=== PATIENT | female | born 1940 | race Caucasian/White ===

== ENCOUNTER 2019-03-06 20:17 | Inpatient (IN) ==
[2019-03-06] MEDS ORDERED: ONDANSETRON 4 MG ODT TABLET SL ONE (21:26)
[2019-03-06] MEDS ORDERED: ONDANSETRON 4 MG/2 ML VIAL IV ONE (21:29)
[2019-03-06 21:51] LABS: Basophils # (Auto) 0 K/mcL (0.0-0.3); Basophils % (Auto) 0.2 % (0.0-2.0); Eosinophils # (Auto) 0.2 K/mcL (0.0-0.7); Eosinophils % (Auto) 2.1 % (0.0-7.0); Granulocytes % (Auto) 72.3 % (38.0-78.0); Hematocrit 41.4 % (36.0-48.0); Hemoglobin 13.4 g/dL (12.0-15.0); Lymphocytes # (Auto) 2.1 K/mcL (1.5-4.8); Lymphocytes % (Auto) 20.9 % (15.5-49.0); Mean Cell Volume 90.6 fL (80.0-100.0); Mean Corpuscular HGB Conc 32.5 g/dL (31.0-36.0); Mean Platelet Volume 9.6 fL (7.4-10.4); Monocytes # (Auto) 0.5 K/mcL (0.1-0.9); Monocytes % (Auto) 4.5 % (1.0-12.0); Platelet Count 244 K/mcL (140-440); RBC 4.57 M/mcL (4.00-5.20); WBC 10.2 K/mcL (4.5-11.0)
--- NOTE | 2019-03-06 22:07 | Emergency Department Note ---
Nausea/Vomiting/Diarrhea HPI - General Chief complaint: Nausea/Vomiting/Diarrhea Stated complaint: vomitng and abd. cramping Time Seen by Provider: 03/06/19 20:59 Source: patient Mode of arrival: EMS Limitations: no limitations - History of Present Illness complaint: nausea, vomiting Onset (ago): day(s) (3-4) Description of Vomiting: food contents, watery Severity: moderate Severity scale (1-10): 6 Quality: cramping, aching Consistency: constant Improves with: none Worsens with: none Associated symptoms: Reports: chest pain, nausea/vomiting, weakness. Denies: myalgias, cough, diaphoresis, fever/chills, headaches, loss of appetite, malaise, rash, dysuria, shortness of breath, syncope - Related Data Home Medications Medication Instructions Recorded Confirmed fish oil 1000mg w/300mg [place] 3 See Rx Instructions PO HS 03/01/17 02/22/19 levalbuterol HFA 45 mcg/actuation 90 mcg INHALATION .COMPLEX PRN g 05/26/17 02/22/19 aerosol inhaler vitamin c w/angus hips 05/26/17 02/22/19 magnesium oxide 400 mg (241.3 mg 400 mg PO QDAY tab 09/26/18 02/22/19 magnesium) tablet metoprolol tartrate 50 mg tablet 100 mg PO BID tab 09/26/18 02/22/19 levalbuterol 1.25 mg/3 mL solution 1.25 mg INHALATION Q1-4H PRN ml 11/10/18 02/22/19 for nebulization cetirizine 10 mg capsule PO cap 11/14/18 02/22/19 clopidogrel 75 mg tablet 75 mg PO QDAY 11/24/18 02/22/19 doxazosin 1 mg tablet 1 mg PO QDAY 02/22/19 02/22/19 ezetimibe 10 mg tablet 10 mg PO QDAY 02/22/19 02/22/19 furosemide 20 mg tablet 20 mg PO QDAY 02/22/19 02/22/19 lisinopril 40 mg tablet 40 mg PO QDAY 02/22/19 02/22/19 nodwxbso-ynbvbrcup-dosnmnmz 3.5 2 drp OPHTHALMIC Q12H ml 02/22/19 02/22/19 mg/mL-10,000 unit/mL-0.1% eye drops Previous Rx's Medication Instructions Recorded lancets See Dose Instructions .ROUTE 05/27/17 .MEDSUPPLY #200 each Home nebulizer #1 ea 09/13/17 cholecalciferol (vitamin D3) 2,000 2,000 unit PO QDAY #90 cap 11/04/17 unit capsule pen needle, diabetic 31 gauge x See Dose Instructions .ROUTE 01/18/18 5/16" .MEDSUPPLY #100 each spironolactone 25 mg tablet 50 mg PO QDAY #180 tab 01/21/18 Accu-Chek SmartView Test Strips See Dose Instructions .ROUTE 04/01/18 .MEDSUPPLY #350 each NS lisinopril 40 mg tablet 40 mg PO QDAY #90 tab 06/02/18 budesonide 0.5 mg/2 mL suspension 0.5 mg INHALATION Q12H #120 ml 06/23/18 for nebulization fenofibrate 160 mg tablet 160 mg PO QDAY #90 tab 10/24/18 clonidine HCl 0.2 mg tablet 0.2 mg PO BID #60 tab 12/06/18 insulin glargine (U-300) conc. 300 28 unit SUB-Q QDAY #8.1 ml 12/06/18 unit/mL (1.5 mL) subcutaneous pen oxybutynin chloride ER 5 mg 5 mg PO QDAY #90 tab 01/04/19 tablet,extended release 24 hr alprazolam 0.5 mg tablet 0.5 mg PO QDAY PRN #30 tab 02/24/19 insulin lispro (U- 100) 100 60 unit SUB-Q .COMPLEX #60 ml 02/24/19 unit/mL subcutaneous pen Allergies Allergy/AdvReac Type Severity Reaction Status Date / Time albuterol [ALBUTEROL] Allergy Severe Throat Verified 02/22/19 12:55 Closes iodine [IODINE] Allergy Severe Anaphylaxis Verified 02/22/19 12:55 tolterodine [TOLTERODINE] Allergy Severe HIGH BLOOD Verified 02/22/19 12:55 SUGARS betamethasone Allergy Intermediate Itching Verified 02/22/19 12:55 [From CELESTONE] ciprofloxacin [From Cipro] Allergy Intermediate Dizziness Verified 02/22/19 12:55 Formoterol [From Symbicort] Allergy Intermediate Shock Verified 02/22/19 12:55 insulin glulisine Allergy Intermediate Severe Verified 02/22/19 12:55 [From Apidra U-100 Insulin] rash to face, neck, ears and thighs fluorometholone Allergy Unknown HIGH BLOOD Verified 02/22/19 12:55 [FLUOROMETHOLONE] SUGAR Jynmovn-Vzc-Pez Reductase Allergy Unknown joint Verified 02/22/19 12:55 Inhibitor muscle pain amlodipine AdvReac Intermediate Muscle Pain Verified 02/22/19 12:55 Barbiturates AdvReac Intermediate Hallucinati Verified 02/22/19 12:55 ng hydrochlorothiazide AdvReac Intermediate Joint Pain Verified 02/22/19 12:55 simvastatin [SIMVASTATIN] AdvReac Intermediate ALL STATIN Verified 02/22/19 12:55 MEDS - SEVERE JOINT PAIN aspirin AdvReac Mild HEMORRHAGE Verified 02/22/19 12:55 hydrocodone [HYDROCODONE] AdvReac Mild Hallucinati Verified 02/22/19 12:55 ons Penicillins AdvReac Mild Nausea/Vomi Verified 02/22/19 12:55 ting lorazepam AdvReac Unknown Drowsy Verified 02/22/19 12:55 From SHELLFISH* Allergy Severe Anaphylaxis Uncoded 02/22/19 12:55 From SECONAL Allergy Unknown hallucinaio Uncoded 02/22/19 12:55 ns metformin AdvReac Severe renal Uncoded 02/22/19 12:55 impairment From PERCOCET AdvReac Intermediate HALLUCINATI Uncoded 02/22/19 12:55 ONS Review of Systems All systems ED: reviewed and negative except as stated. Past Medical History - Past Medical History [facility] Narrative: Family History (Last Reviewed 12/05/18 @ 09:47 by Andrea Springer PA-C) no family member listed Depression Cardiac disease Essential hypertension Medical History (Last Reviewed 12/05/18 @ 09:47 by Andrea Springer PA-C) Secondary hyperparathyroidism of renal origin (Chronic) Vitamin D deficiency (Chronic) Hypertension in stage 3 chronic kidney disease due to type 2 diabetes mellitus (Chronic) CKD (chronic kidney disease) stage 3, GFR 30-59 ml/min (Chronic) Seasonal and perennial allergic rhinitis (Chronic) Vertigo (Chronic) Perennial allergic rhinitis (Chronic) Fatigue (Chronic) Traumatic brain injury (Chronic ~04/1996) Carpal tunnel syndrome (Chronic) Arthritis (Chronic) Anxiety (Chronic) Diabetes mellitus (Chronic) Osteopenia (Chronic) Migraine (Chronic) Hypertensive heart disease without heart failure (Chronic) Hypertension, essential (Chronic) Hyperlipemia (Chronic) Diabetes mellitus, type II (Chronic) 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) Coronary artery disease (Chronic) Common migraine (Chronic) Asthma (Chronic) Degeneration, intervertebral disc (Resolved) Depressive disorder (Resolved) Head injury (Resolved) Hip pain, left (Resolved) History of hysterectomy (Resolved ~1981) History of renal angiogram (Resolved 02/26/00) Lung nodule (Resolved) Orthopnea (Resolved) Painful urination (Resolved) Radial styloid tenosynovitis (Resolved) Right upper quadrant pain (Resolved) Sinus headache (Resolved) Sinusitis (Resolved) Tenosynovitis of finger, hand, or wrist (Resolved) Thoracic or lumbosacral neuritis or radiculitis (Resolved) Transient ischemic attack (TIA) (Resolved) Vertigo (Resolved) All Active Problems (Last Reviewed 12/05/18 @ 09:47 by Andrea Springer PA-C) Dehydration (Acute) Neurological deficit present (Acute) Cognitive changes (Acute) History of hypertension (Acute) Side effect of medication (Acute) Conjunctivitis (Acute) Cellulitis of right anterior lower leg (Acute) Visual changes (Acute) Dysmetria (Acute) Secondary hyperparathyroidism of renal origin (Chronic) Vitamin D deficiency (Chronic) Hypertension in stage 3 chronic kidney disease due to type 2 diabetes mellitus (Chronic) CKD (chronic kidney disease) stage 3, GFR 30-59 ml/min (Chronic) Adenocarcinoma, lung (Chronic) Urinary incontinence (Chronic) Seasonal and perennial allergic rhinitis (Chronic) Vertigo (Chronic) Patellofemoral arthralgia of right knee (Chronic) Perennial allergic rhinitis (Chronic) Fatigue (Chronic) Traumatic brain injury (Chronic ~04/1996) Carpal tunnel syndrome (Chronic) Arthritis (Chronic) Anxiety (Chronic) Diabetes mellitus (Chronic) Osteopenia (Chronic) Migraine (Chronic) Hypertensive heart disease without heart failure (Chronic) Hypertension, essential (Chronic) Hyperlipemia (Chronic) Diabetes mellitus, type II (Chronic) 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) Coronary artery disease (Chronic) Common migraine (Chronic) Asthma (Chronic) Past Surgical History (Last Reviewed 12/05/18 @ 09:47 by Andrea Springer PA-C) History of colonoscopy (Chronic 06/05/13) History of lung biopsy (Chronic ~04/2011) History of YAG laser capsulotomy of lens of left eye (Resolved 10/11/13) History of YAG laser capsulotomy of lens of right eye (Resolved 02/11/09) History of carpal tunnel release (Resolved) History of carpal tunnel release (Resolved 05/17/06) History of cataract extraction (Resolved) History of cholecystectomy (Resolved) History of cholecystectomy (Resolved ~1981) History of foot surgery (Resolved ~1960) History of kidney surgery (Resolved) History of lumbar surgery (Resolved) History of spinal surgery (Resolved ~1981) History of surgery (Resolved 06/01/17) History of thumb surgery (Resolved ~2005) History of tonsillectomy (Resolved ~1947) Hx of Achilles tendon repair (Resolved) Hx of blepharoplasty (Resolved) Hx of cardiac catheterization (Resolved) Hx of colonoscopy (Resolved) Hx of foot surgery (Resolved) Hx of repair of left rotator cuff (Resolved ~09/1998) Hx of repair of right rotator cuff (Resolved 11/15/01) Hx of repair of rotator cuff (Resolved) Lung cancer (Resolved) Status post blepharoplasty of both eyes (Resolved 10/24/14) Medical history: Reports: arthritis, asthma, cancer (Non-small cell lung), CAD (coronary artery disease), DM (Type II, insulin using. Complications include kidney issues and hyperglycemia.), hyperlipidemia, hypertension, myocardial infarction, renal disease, TIA (3 episodes), other (PAT. Dry eyes. Traumatic brain injury.). Denies: CVA Psychiatric history: Reports: depression (Past, not current.). Denies: anxiety Surgical history ED: Reports: cancer surgery (Right lung lobectomy.), cataract, cholecystectomy, orthopedic, other (Carpal tunnel bilat. Shoulders. Bilat thumb release. Left middle finger geoff release. C6-C7 anterior disc excision. Toe bones removed.), CHANDANA/BSO, tonsillectomy, other (blepharoplasty bilat. ) - Social History smoking status: Never smoker Alcohol use: Reports: Rarely Drug use: Reports: none. Denies: marijuana Physical Exam Limitations: no limitations General appearance: alert, in no apparent distress Head: atraumatic, normocephalic Eye: Present: normal appearance, PERRL, EOMI. Absent: scleral icterus, conjunctival injection ENT: normal oropharynx, mucous membranes moist Neck: Present: trachea midline. Absent: lymphadenopathy, thyromegaly Chest: Present: symmetric chest wall rise Respiratory: Present: normal lung sounds bilaterally. Absent: respiratory distress, wheezes, stridor, accessory muscle use, prolonged expiratory phase Cardiovascular: Present: regular rate, normal rhythm. Absent: systolic murmur, diastolic murmur Abdominal: Present: soft, tenderness. Absent: distention, guarding, rebound, rigidity, organomegaly, mass Abdominal tenderness: Present: RLQ, mild Extremities: Absent: pedal edema, pretibial edema, calf tenderness Back: Absent: CVA tenderness (R), CVA tenderness (L), spinous process tenderness Neurological: Present: alert, oriented X3 Psychiatric: Present: normal affect, normal mood Skin: Present: warm, dry Course Vital Signs Temperature 97.0 F 03/06/19 20:18 Pulse Rate 45 L 03/06/19 20:18 Respiratory Rate 16 03/06/19 20:18 Blood Pressure 140/86 03/06/19 20:18 Pulse Oximetry (%) 98 03/06/19 20:18 Temperature 97.0 F 03/06/19 20:18 Pulse Rate 55 L 03/07/19 00:46 Respiratory Rate 25 H 03/07/19 00:01 Blood Pressure 162/52 03/07/19 00:46 Pulse Oximetry (%) 91 03/07/19 00:46 Nausea/Vomiting/Diarrhea - [facility] Narrative Medical decision making narrative: 78-year-old female presenting to the emergency department chief complaint of nausea vomiting diarrhea, patient did have some abdominal pain but not dramatic. Patient without significant fever CBC was normal patient however was persistently vomiting scan reveals appendix at 1.[address] case [address] Mckeon and the consensus medical pain is to admit the patient provide with Zosyn and antiemetics and pain medication. Surgical evaluation in the morning. - Differential Diagnosis Likely: food poisoning, gastroenteritis, drug-induced nausea and vomitting, dehydration. Unlikely: traveler's diarrhea, clostridium difficile infection - Lab Data Result diagrams: 03/06/19 21:13 03/06/19 22:07 Lab Results 03/06/19 03/06/19 03/06/19 Range/Units 21:13 21:13 22:07 WBC 10.2 (4.5-11.0) K/mcL RBC 4.57 (4.00-5.20) M/mcL Hgb 13.4 (12.0-15.0) g/dL Hct 41.4 (36.0-48.0) % MCV 90.6 (80.0-100.0) fL MCH 29.4 (26.0-34.0) pg MCHC 32.5 (31.0-36.0) g/dL RDW 14.0 (11.5-14.5) % Plt Count 244 (140-440) K/mcL MPV 9.6 (7.4-10.4) fL Gran % 72.3 (38.0-78.0) % Lymph % (Auto) 20.9 (15.5-49.0) % Alfalfa % (Auto) 4.5 (1.0-12.0) % Eos % (Auto) 2.1 (0.0-7.0) % Baso % (Auto) 0.2 (0.0-2.0) % Gran # 7.4 (1.8-8.0) K/mcL Lymph # (Auto) 2.1 (1.5-4.8) K/mcL Alfalfa # (Auto) 0.5 (0.1-0.9) K/mcL Eos # (Auto) 0.2 (0.0-0.7) K/mcL Baso # (Auto) 0 (0.0-0.3) K/mcL Sodium Not Reportable 138 Potassium Not Reportable 4.0 Chloride Not Reportable 101 Carbon Dioxide Not Reportable 24 Anion Gap Not Reportable 13.0 BUN Not Reportable 28 H Creatinine Not Reportable 1.3 H GFR Calculation Not Reportable 40 Glucose TNP 153 H Calcium Not Reportable 9.2 Total Bilirubin Not Reportable 0.3 AST Not Reportable 50 H ALT Not Reportable 40 Alkaline Phosphatase Not Reportable 30 L Total Protein Not Reportable 6.6 Albumin Not Reportable 3.7 Globulin Not Reportable 2.9 Albumin/Globulin Ratio Not Reportable 1.3 Disposition Pt seen by PRINCIPAL PROCESS ENGINEER/PA only: No Clinical Impression: Appendicitis Qualifiers: Appendicitis type: acute appendicitis Acute appendicitis type: unspecified acute appendicitis type Qualified Code(s): K35.80 - Unspecified acute appendicitis Disposition: Xfer As Outpt/Obs ([facility]) Condition: Fair Instructions: Appendicitis (GEN) Referrals: Seeber,Xavier, MD [Primary Care Provider] -
[2019-03-06] MEDS ORDERED: PROMETHAZINE 25 MG/ML VIAL IV ONE (22:26)
[2019-03-06 23:13] LABS: ALT/SGPT 40 U/l (0-40); AST/SGOT 50 U/l (0-37); Albumin 3.7 gm/dL (3.2-5.2); Albumin/Globulin Ratio 1.3 (1.0-2.3); Alkaline Phosphatase 30 U/L (39-117); Bilirubin,Total 0.3 mg/dL (0.0-1.0); Blood Urea Nitrogen 28 mg/dl (8-23); Calcium 9.2 mg/dl (8.6-10.4); Carbon Dioxide 24 mmol/L (22-30); Chloride 101 mmol/L (96-108); Globulin 2.9 gm/dL (2.2-3.7); Glomerular Filtration Rate 40; Glucose 153 mg/dL (70-105)
[2019-03-07] MEDS ORDERED: PIPERACILLIN SODIUM/TAZOBACTAM 3.375 GM in DEXTROSE 5% IN WATER 50 ML IV ONE (00:43)
[2019-03-07] MEDS ORDERED: PROMETHAZINE 25 MG/ML VIAL IV PRN ×3 (00:47→21:35)
[2019-03-07] MEDS: PIPERACILLIN SODIUM/TAZOBACTAM 3.375 GM in DEXTROSE 5% IN WATER 50 ML IV SCH ×4 (01:07→11:15)
[2019-03-07 01:29] LABS: Appearance,Urine CLEAR; Bacteria,Urine 0 /hpf (0); Bilirubin,Urine NEG (NEG); Color,Urine YELLOW; Culture Indicated,Urine NO; Glucose,Urine (UA) NEGATIVE (NEG); Ketones,Urine 5/TR mg/dL (NEG); Leukocyte Esterase,Urine 25 /uL (NEG); Mucus,Urine FEW /hpf (0); Nitrate,Urine NEG (NEG); Protein,Urine NEG (NEG); Urine Blood NEG mg/dL (<0.03); Urine RBC < 1 /hpf (0-1); Urine Squamous Epithelial Cell 0 /hpf (0-4); Urine Transitional Epi Cells < 1 /hpf (0-2); Urine WBC 1 /hpf (0-4); Urobilinogen,Urine NEG (NEG)
[2019-03-07] MEDS: 0.9 % SODIUM CHLORIDE 1,000 ML IV SCH ×3 (01:34→23:20)
[2019-03-07] MEDS: HYDROmorphone 2 MG/ML VIAL IV PRN ×2 (04:24→08:53)
--- NOTE | 2019-03-07 05:44 | Cat Scan Report ---
CLINICAL INFORMATION: Nausea, vomiting and abdominal pain COMPARISON: Abdomen and pelvic CT . TECHNIQUE: 0.625 mm helical slices were obtained from the mid heart through the subtrochanteric regions. Following reconstruction, 2.5 mm sagittal, coronal and axial reformatted images were processed and reviewed at bone and soft tissue windows.The exam was performed using radiation dose optimization techniques including, but not limited to, automated exposure control, adjustment of the mA and/or kV according to patient size and use of iterative reconstruction technique. FINDINGS: Scattered scarring in the inferior right middle and lower lobes appreciated. No nodules or infiltrates. No effusions. The visualized heart is mildly enlarged and there is heavy plaque in the coronary arteries - particularly the LAD. Abdominal images show the noncontrasted liver is normal in size and configuration. A 13 mm cyst in the left hepatic lobe is stable since the 2011 CT. The gallbladder is surgically absent. Intrahepatic and common bile ducts are normal caliber: CBD is 5 mm. Both noncontrasted kidneys, adrenal glands, spleen, pancreas, and aorta are normal in size, configuration and attenuation without focal lesion. There is no free air, free fluid or adenopathy. Pelvic images show hysterectomy/oophorectomy changes. Urinary bladder is unremarkable. The appendix is located in the inferior pericecal region and is dilated (diameter 12 mm) with wall thickening and periappendiceal inflammation. Moreover, there are three appendicoliths ranging up to a 10 mm stone near the cecal junction. Findings are compatible simple appendicitis. The colon, small bowel and stomach are on otherwise, normal. Bone windows show degenerative changes in the lumbar spine with moderate L3-4 and mild L4-5 central canal and IV foraminal narrowing related disc protrusion and facet arthropathy. There is impingement of the L3, L4-L5 nerve roots. IMPRESSION: 1. Simple appendicitis. Appendix is located in the inferior pericecal region. 2. Heavy calcific plaque in the coronary arteries - particularly the LAD 3. 13 mm cyst in the left hepatic lobe - stable. Note: Lack of intravenous contrast and water as enteric contrast significantly decreases sensitivity in detecting pathology both in solid abdominal organs and enteric structures Interpreted and Authenticated by: Karsten Eng 03/07/19
[2019-03-07] MEDS: 0.9 % SODIUM CHLORIDE 10 ML SYRINGE IV SCH ×3 (06:35→23:20)
--- NOTE | 2019-03-07 09:00 | XRay Report ---
CLINICAL INFORMATION: preop evaluation COMPARISON: 06/15/2018 FINDINGS: The heart size, mediastinum and pulmonary vessels are unremarkable. The lungs are clear. There are no effusions. The bones and soft tissues are within normal limits. IMPRESSION: Normal chest. Interpreted and Authenticated by: Karsten Eng 03/07/19
[2019-03-07 09:42] LABS: INR 1.1 (0.9-1.1); Prothrombin Time 14.6 sec (11.9-14.5)
--- NOTE | 2019-03-07 10:58 | General Surg History&Physical ---
History of Present Illness Patient information: Note initiated : 03/07/19 at 10:56 am Service Date, if different from initiated Date: [] Patient: Modesta Butterfield a 78 y/o F admitted on 03/07/19 for vomitng and abd. cramping. Chief Complaint: [] HPI: Ms. Butterfield is a 78 year old F gives a history of onset of crampy lower abdominal pain yesterday evening. This was followed by multiple episodes of nausea with vomiting. She had at least 8 episodes of emesis. She had diffuse pain across her lower abdomen initially and later settled in the right lower quadrant. She did have multiple stools but they were not watery. She has not had similar discomfort in the past. She was seen in the emergency room with finding of tender lower abdomen, normal active bowel sounds. CT of the abdomen shows a 12 mm appendix with thickened appendiceal wall and periappendiceal edema with 3 appendicoliths. Patient is admitted with acute appendicitis. She is counseled for laparoscopic appendectomy. Review of Systems All systems PM: reviewed and no additional remarkable complaints except as stated (except as noted below) - Constitutional fatigue, malaise, weakness - Cardiovascular no chest pain with activity, no palpatations, no rapid heart rate - Respiratory no cough, no dyspnea, no wheezing - Gastrointestinal abdominal pain, change in bowel habits, cramping, nausea, tenesmus - Genitourinary Genitourinary: dysuria, nocturia, urinary incontinence, urinary urgency - Musculoskeletal arthralgias, joint swelling, myalgias, stiffness - Integumentary no non-healing lesions, no pruritus, no rash - Neurological headache(s), no dizziness, no tremor(s) - Psychiatric anxiety, depression - Hematologic/Lymphatic no easy bleeding, no easy bruising, no lymphadenopathy - Allergic/Immunologic no tongue swelling, no throat swelling, no uticaria, no wheezing, no lip swelling Past History Past medical history: Chronic asthma which is stable Congestive heart failure, clinically stable Hypertension CKD-3 Traumatic brain injury 1995 Diabetes mellitus uncontrolled Coronary artery disease stable Anxiety with depression History of lung cancer status post resection 2017 Degenerative disc disease stable Past surgical history: Abdominal hysterectomy Bilateral carpal tunnel release. Cholecystectomy C6-7 disc surgery Right lower lobectomy 2017 Achilles tendon repair Bilateral rotator cuff repair Past family history: Depression Cardiac disease Hypertension Past social history: Never smoker Never drinker Denies drug use Medications and Allergies Home Medications Medication Instructions Recorded Confirmed Type fish oil 1000mg w/300mg [place] 3 2 tab PO HS 03/01/17 03/07/19 History levalbuterol HFA 45 mcg/actuation 90 mcg INHALATION .COMPLEX PRN g 05/26/17 03/07/19 History aerosol inhaler vitamin c w/angus hips 1,000 mg PO QNOON 05/26/17 03/07/19 History lancets See Dose Instructions .ROUTE 05/27/17 02/22/19 Rx .MEDSUPPLY #200 each Home nebulizer #1 ea 09/13/17 02/22/19 Rx pen needle, diabetic 31 gauge x See Dose Instructions .ROUTE 01/18/18 02/22/19 Rx 5/16" .MEDSUPPLY #100 each spironolactone 25 mg tablet 50 mg PO QDAY #180 tab 01/21/18 03/07/19 Rx Accu-Chek SmartView Test Strips See Dose Instructions .ROUTE 04/01/18 02/22/19 Rx .MEDSUPPLY #350 each NS budesonide 0.5 mg/2 mL suspension 0.5 mg INHALATION Q12H #120 ml 06/23/18 03/07/19 Rx for nebulization magnesium oxide 400 mg (241.3 mg 400 mg PO QNOON tab 09/26/18 03/07/19 History magnesium) tablet metoprolol tartrate 50 mg tablet 100 mg PO BID tab 09/26/18 03/07/19 History fenofibrate 160 mg tablet 160 mg PO QDAY #90 tab 10/24/18 03/07/19 Rx levalbuterol 1.25 mg/3 mL solution 1.25 mg INHALATION Q1-4H PRN ml 11/10/18 03/07/19 History for nebulization cetirizine 10 mg capsule 10 mg PO DAILY cap 11/14/18 03/07/19 History clopidogrel 75 mg tablet 75 mg PO QDAY 11/24/18 03/07/19 History insulin glargine (U-300) conc. 300 28 unit SUB-Q QDAY #8.1 ml 12/06/18 03/07/19 Rx unit/mL (1.5 mL) subcutaneous pen oxybutynin chloride ER 5 mg 5 mg PO QDAY #90 tab 01/04/19 03/07/19 Rx tablet,extended release 24 hr doxazosin 1 mg tablet 1 mg PO HS 02/22/19 03/07/19 History ezetimibe 10 mg tablet 10 mg PO QDAY 02/22/19 03/07/19 History furosemide 20 mg tablet 20 mg PO QDAY 02/22/19 03/07/19 History xcjgzcmq-zubygqmka-yguwjnvg 3.5 2 drp OPHTHALMIC Q12H ml 02/22/19 03/07/19 History mg/mL-10,000 unit/mL-0.1% eye drops ALPRAZolam [Xanax] 0.5 mg PO QHS PRN 03/07/19 03/07/19 History Cholecalciferol (Vitamin D3) 2,000 unit PO QNOON 03/07/19 03/07/19 History [Vitamin D3] Insulin Lispro [Humalog KwikPen 60 unit SUBCUT .COMPLEX 03/07/19 03/07/19 History Insulin] Lisinopril [Zestril] 40 mg PO QNOON 03/07/19 03/07/19 History cloNIDine HCL [Catapres] 0.1 mg PO BID 03/07/19 03/07/19 History Allergies Allergy/AdvReac Type Severity Reaction Status Date / Time albuterol [ALBUTEROL] Allergy Severe Throat Verified 02/22/19 12:55 Closes iodine [IODINE] Allergy Severe Anaphylaxis Verified 02/22/19 12:55 cat dander Allergy Intermediate Difficulty Verified 03/07/19 02:57 Breathing dog dander Allergy Intermediate Difficulty Verified 03/07/19 02:57 Breathing Formoterol [From Symbicort] Allergy Intermediate Shock Verified 02/22/19 12:55 insulin glulisine Allergy Intermediate Severe Verified 02/22/19 12:55 [From Apidra U-100 Insulin] rash to face, neck, ears and thighs betamethasone Allergy Mild Itching Verified 03/07/19 07:41 [From CELESTONE] amlodipine AdvReac Intermediate Muscle Pain Verified 02/22/19 12:55 Barbiturates AdvReac Intermediate Hallucinati Verified 02/22/19 12:55 ng hydrochlorothiazide AdvReac Intermediate Joint Pain Verified 02/22/19 12:55 [id number]-Sdc-Vpw Reductase AdvReac Intermediate joint Verified 03/07/19 07:41 Inhibitor muscle pain aspirin AdvReac Mild HEMORRHAGE Verified 02/22/19 12:55 ciprofloxacin [From Cipro] AdvReac Mild Dizziness Verified 03/07/19 07:41 clarithromycin AdvReac Mild Dizziness Verified 03/07/19 07:41 fluorometholone AdvReac Mild HIGH BLOOD Verified 03/07/19 07:41 [FLUOROMETHOLONE] SUGAR hydrocodone [HYDROCODONE] AdvReac Mild Hallucinati Verified 02/22/19 12:55 ons lorazepam AdvReac Mild Drowsy Verified 03/07/19 07:41 Penicillins AdvReac Mild Nausea/Vomi Verified 02/22/19 12:55 ting tolterodine [TOLTERODINE] AdvReac Mild HIGH BLOOD Verified 03/07/19 07:41 SUGARS From SHELLFISH* Allergy Severe Anaphylaxis Uncoded 02/22/19 12:55 From SECONAL Allergy Intermediate hallucinaio Uncoded 03/07/19 07:41 ns metformin AdvReac Severe renal Uncoded 02/22/19 12:55 impairment From PERCOCET AdvReac Intermediate HALLUCINATI Uncoded 02/22/19 12:55 ONS Exam Temp Pulse Resp BP Pulse Ox 97.2 F 85 18 116/50 94 03/07/19 07:41 03/07/19 07:41 03/07/19 07:41 03/07/19 07:41 03/07/19 07:41 - General physical appearance well developed (another 1), well nourished, moderate distress, moderate pain - Eyes PERRL, normal ocular movement - ENT normal pinna, normal nares, normal mucosa, no hearing loss, no congestion - Head Head exam IM: Present: atraumatic, normal inspection, normocephalic - Neck no masses, no bruits, trachea midline, no lymphadenopathy, no venous distension - Cardiovascular Cardiovascular exam IM: Present: normal rate and rhythm, RRR, +S1, +S2. Absent: JVD, systolic murmur, tachycardia - Respiratory normal expansion, normal respiratory effort, clear to auscultation - Abdomen Abdomen: Present: soft, tender ( tenderness with guarding and rebound right lower quadrant), distended Hernia: Present: none - Genitourinary Present: normal external genitalia - Integumentary Present: no rash, no growths, no abnormal pigmentation - Neurologic Present: normal coordination, normal sensation - Musculoskeletal Present: normal gait, normal posture - Psychiatric Present: oriented to time, oriented to person, oriented to place, speech is normal, memory intact Assessment and Plan (1) Acute appendicitis Status: Acute Qualifiers: Acute appendicitis type: with localized peritonitis Appendicitis perforation presence: without perforation Appendicitis abscess presence: without abscess (2) CKD (chronic kidney disease) stage 3, GFR 30-59 ml/min Patient is counseled for laparoscopic appendectomy to be done later today Status: Chronic (3) Adenocarcinoma, 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 Qualifiers: Laterality: right Qualified Code(s): C34.91 - Malignant neoplasm of unspecified part of right bronchus or lung; C34.91 - Malignant neoplasm of unspecified part of right bronchus or lung; C34.91 - Malignant neoplasm of unspecified part of right bronchus or lung; C34.91 - Malignant neoplasm of unspecified part of right bronchus or lung (4) Asthma Status: Chronic Priority: Low Comment: Mild, Intermitten Qualifiers: Asthma severity: mild Asthma persistence: intermittent Asthma complication type: uncomplicated Qualified Code(s): J45.20 - Mild intermittent asthma, uncomplicated; J45.20 - Mild intermittent asthma, uncomplicated; J45.20 - Mild intermittent asthma, uncomplicated
[2019-03-07] MEDS ORDERED: ONDANSETRON 4 MG/2 ML VIAL IV ONE ×2 (12:09→19:45)
[2019-03-07] MEDS ORDERED: KETAMINE 100 MG/ML ML IV ONE ×2 (12:09→19:45)
[2019-03-07] MEDS ORDERED: fentaNYL 100 MCG/2 ML VIAL IV ONE ×2 (12:09→19:45)
[2019-03-07] MEDS ORDERED: ESMOLOL 100 MG/10 ML VIAL IV ONE (12:09)
[2019-03-07] MEDS ORDERED: METOPROLOL TARTRATE 5 MG/5 ML VIAL IV ONE (12:09)
[2019-03-07] MEDS ORDERED: LIDOCAINE HCL/PF 100 MG/5 ML SYRINGE IV ONE ×2 (12:09→19:45)
[2019-03-07] MEDS ORDERED: ROCURONIUM 10 MG/ML ML IV ONE ×2 (12:09→19:45)
[2019-03-07] MEDS ORDERED: MIDAZOLAM 2 MG/2 ML VIAL IV ONE (12:09)
[2019-03-07] MEDS ORDERED: SUGAMMADEX SODIUM 200 MG/2 ML VIAL IV ONE ×2 (12:09→19:45)
[2019-03-07] MEDS ORDERED: GLYCOPYRROLATE 0.2 MG/ML VIAL IV ONE ×2 (12:09→19:45)
[2019-03-07] MEDS ORDERED: PROPOFOL 200 MG/20 ML VIAL IV ONE ×2 (12:09→19:45)
--- NOTE | 2019-03-07 13:00 | Brief Operative Note ---
Date of procedure: 03/07/19 Pre-op diagnosis: ACUTE APPENDICITIS Post-op diagnosis: other (ACUTE APPENDICITIS) Procedure: LAPAROSCOPIC APPENDECTOMY Grafts/Implants: Yes Anesthesia: GETA Findings: ACUTE SUPPURATIVE APPENDICITIS Complications: none Surgeon: Natalee Mckeon Estimated blood loss (cc): 10 Specimens Removed/Pathology: other (APPENDIX) Condition: stable Disposition: PACU
[2019-03-07] MEDS ORDERED: ACETAMINOPHEN 1,000 MG/100 ML BOTTLE IV ONE (13:27)
[2019-03-07] MEDS ORDERED: FLUMAZENIL 0.1 MG/ML ML IV PRN (13:27)
[2019-03-07] MEDS ORDERED: fentaNYL 100 MCG/2 ML VIAL IV PRN ×3 (13:27→21:35)
[2019-03-07] MEDS ORDERED: MEPERIDINE 25 MG/ML SYRINGE IV PRN ×3 (13:27→21:35)
[2019-03-07] MEDS ORDERED: ONDANSETRON 4 MG/2 ML VIAL IV PRN (13:27)
[2019-03-07] MEDS ORDERED: ePHEDrine 50 MG/ML AMPUL IV PRN (13:27)
[2019-03-07] MEDS ORDERED: IPRATROPIUM/ALBUTEROL 3 ML AMPUL.NEB NEB PRN ×3 (13:27→21:35)
[2019-03-07] MEDS ORDERED: diphenhydrAMINE 50 MG/ML VIAL IV PRN (13:27)
[2019-03-07] MEDS ORDERED: ATROPINE SULFATE 0.4 MG/ML VIAL IV PRN (13:27)
[2019-03-07] MEDS ORDERED: NALOXONE HCL 0.4 MG/ML VIAL IV PRN (13:27)
[2019-03-07] MEDS ORDERED: LACTATED RINGERS 1,000 ML IV SCH ×3 (13:30→21:35)
--- NOTE | 2019-03-07 13:32 | Operative Note ---
DATE OF OPERATION: 03/07/2019 PREOPERATIVE DIAGNOSIS: Acute appendicitis. POSTOPERATIVE DIAGNOSIS: Acute appendicitis. PROCEDURE: Laparoscopic appendectomy. SURGEON: Natalee Mckeon M.D. FINDINGS: Acute suppurative appendicitis. DESCRIPTION OF PROCEDURE: Under general anesthesia, the patient's abdomen was prepped and draped in a sterile field. A time-out procedure was carried out as per protocol. A supraumbilical incision was made and Veress needle was inserted uneventfully. Abdomen was insufflated with 3 liters of CO2. A 12 mm port was placed. Laparoscope was placed. There were adhesions in the suprapubic midline. A 12 mm port was placed in the left lower quadrant. Using the hook electrode the adhesions were taken down in the suprapubic area. A 5 mm port was then placed. The patient was placed in deep Trendelenburg position and rotated to the left. The appendix was found in the right gutter. It was grasped and mobilized from the lateral peritoneal attachments using electrocautery. The mesoappendix was grasped. A window was made at the base of the appendix and the Endo stapler was placed. The base was transected. The mesoappendix was transected using Endo stapler. The appendix was placed in an Endopouch and retrieved. Irrigation was carried until the fluid returned clear. There was no bleeding and there was no evidence of abscess or residual purulence. CO2 was allowed to escape from the abdomen and the ports were removed. Fascia at the umbilicus was closed with 0 Vicryl. Skin incisions were closed with juan. Tegaderm dressings were placed. The patient tolerated the procedure well. She was awakened, transferred to a bed and taken to the postanesthetic care unit in stable, satisfactory condition. LCS:love Job ID: [id number] Doc ID: [id number] Natalee Mckeon M.D.
[2019-03-07] MEDS ORDERED: HYDROmorphone 2 MG/ML VIAL IV PRN ×4 (14:04→21:35)
[2019-03-07] MEDS ORDERED: 0.9 % SODIUM CHLORIDE 1,000 ML IV SCH ×2 (14:04→18:00)
[2019-03-07] MEDS: INSULIN LISPRO 1 UNIT/0.01 ML UNIT SQ SCH (16:31)
[2019-03-07] MEDS ORDERED: 0.9 % SODIUM CHLORIDE 500 ML IV ONE (16:36)
[2019-03-07] MEDS ORDERED: NALOXONE HCL 0.4 MG/ML VIAL IV ONE (16:45)
[2019-03-07] MEDS ORDERED: NALOXONE HCL 0.4 MG/ML VIAL ONE (16:47)
[2019-03-07 17:35] LABS: POC Blood Urea Nitrogen 24 mg/dl (8-23); POC CO2 21 mmol/L (22-30); POC Calcium, Ionized 1.09 mmol/L (1.16-1.32); POC Chloride 105 mmol/L (96-108); POC Creatinine 1.4 mg/dl (0.6-1.1); POC Glucose, Random 226 mg/dL (70-105); POC Potassium 3.9 mmol/L (3.3-5.1); POC Sodium 141 mmol/L (133-145)
[2019-03-07] MEDS ORDERED: 0.9 % SODIUM CHLORIDE 250 ML IV SCH ×4 (17:45→21:35)
[2019-03-07] MEDS ORDERED: PIPERACILLIN SODIUM/TAZOBACTAM 3.375 GM in DEXTROSE 5% IN WATER 50 ML IV SCH (18:00)
[2019-03-07 18:25] LABS: Basophils # (Auto) 0 K/mcL (0.0-0.3); Basophils % (Auto) 0 % (0.0-2.0); Eosinophils # (Auto) 0 K/mcL (0.0-0.7); Eosinophils % (Auto) 0 % (0.0-7.0); Granulocytes % (Auto) 88.6 % (38.0-78.0); Hematocrit 32.7 % (36.0-48.0); Hemoglobin 10.8 g/dL (12.0-15.0); Lymphocytes # (Auto) 1.1 K/mcL (1.5-4.8); Lymphocytes % (Auto) 7.2 % (15.5-49.0); Mean Cell Volume 89.9 fL (80.0-100.0); Mean Corpuscular HGB Conc 33.1 g/dL (31.0-36.0); Mean Platelet Volume 9.3 fL (7.4-10.4); Monocytes # (Auto) 0.6 K/mcL (0.1-0.9); Monocytes % (Auto) 4.2 % (1.0-12.0); Platelet Count 220 K/mcL (140-440); RBC 3.63 M/mcL (4.00-5.20); Red Cell Distribution Width 13.8 % (11.5-14.5); WBC 14.9 K/mcL (4.5-11.0)
--- NOTE | 2019-03-07 18:53 | General Surgery Progress Note ---
Subjective Narrative: Note initiated : 03/07/19 at 6:50 pm Service Date, if different from initiated Date: [] Patient: Modesta Butterfield 78 y/o F admitted on 03/07/19 for vomitng and abd. cramping. Chief Complaint: [I was notified that patient had blood pressure 76 systolic. Patient was given 500 cc of saline and her blood pressure increased to 113 systolic with heart rate in the 80 range. Her abdomen was benign. CT of the abdomen without contrast was done and it showed increase in bleeding in the lower abdomen but none in the FIELD of the appendectomy or the portal sites. repeat hemoglobin was 10 which is down from 13 from the time of admission. Patient's blood pressure is still only about 100 systolic. Because of potential for ongoing bleeding she is counseled that I will need to do diagnostic laparoscopy and possible open laparotomy to explore for the source of her bleed. She has been typed and crossed for 2 units of packed red cells and will be transfused if needed.] Objective Temp Pulse Resp BP Pulse Ox 97.5 F 88 18 113/59 97 03/07/19 16:58 03/07/19 16:58 03/07/19 16:58 03/07/19 16:58 03/07/19 16:58 - Additional Data Intake & Output - Last 24 hours: Intake & Output 03/05/19 03/06/19 03/07/19 03/08/19 05:59 05:59 05:59 05:59 Intake Total 50 1097 Output Total 450 Balance 50 647 Weight 190 lb - Labs 03/07/19 17:29 03/06/19 22:07 Diabetes panel 03/06/19 03/06/19 Range/Units 21:13 22:07 Sodium Not Reportable 138 Potassium Not Reportable 4.0 Chloride Not Reportable 101 Carbon Dioxide Not Reportable 24 BUN Not Reportable 28 H Creatinine Not Reportable 1.3 H Glucose TNP 153 H Calcium Not Reportable 9.2 AST Not Reportable 50 H ALT Not Reportable 40 Alkaline Phosphatase Not Reportable 30 L Total Protein Not Reportable 6.6 Albumin Not Reportable 3.7 Calcium panel 03/06/19 03/06/19 Range/Units 21:13 22:07 Calcium Not Reportable 9.2 Albumin Not Reportable 3.7 Pituitary panel 03/06/19 03/06/19 Range/Units 21:13 22:07 Sodium Not Reportable 138 Potassium Not Reportable 4.0 Chloride Not Reportable 101 Carbon Dioxide Not Reportable 24 BUN Not Reportable 28 H Creatinine Not Reportable 1.3 H Glucose TNP 153 H Calcium Not Reportable 9.2 Adrenal panel 03/06/19 03/06/19 Range/Units 21:13 22:07 Sodium Not Reportable 138 Potassium Not Reportable 4.0 Chloride Not Reportable 101 Carbon Dioxide Not Reportable 24 BUN Not Reportable 28 H Creatinine Not Reportable 1.3 H Glucose TNP 153 H Calcium Not Reportable 9.2 Total Bilirubin Not Reportable 0.3 AST Not Reportable 50 H ALT Not Reportable 40 Alkaline Phosphatase Not Reportable 30 L Total Protein Not Reportable 6.6 Albumin Not Reportable 3.7 Assessment and Plan (1) Acute appendicitis Status: Acute Current Visit: Yes (2) CKD (chronic kidney disease) stage 3, GFR 30-59 ml/min Status: Chronic Current Visit: No (3) Adenocarcinoma, lung Problem details: invasive well differentiated Status: Resolved Current Visit: No (4) Asthma Problem details: Mild, Intermitten Status: Chronic Current Visit: No - Time Spent With Patient Total time spent is greater than 50% in coordination of care (as documented) at patient's floor/unit and/or counseling patient:
--- NOTE | 2019-03-07 19:17 | Cat Scan Report ---
CLINICAL INFORMATION: Status post appendectomy. Dropping hematocrit. Evaluate for postoperative hemorrhage. COMPARISON: Preoperative abdomen and pelvic CT 03/07/2019. TECHNIQUE: IV contrast withheld because of extreme reaction to radiographic contrast media. 0.625 mm helical slices were obtained from the mid heart through the subtrochanteric regions. Following reconstruction, 2.5 mm sagittal, coronal and axial reformatted images were processed and reviewed at bone and soft tissue windows.The exam was performed using radiation dose optimization techniques including, but not limited to, automated exposure control, adjustment of the mA and/or kV according to patient size and use of iterative reconstruction technique. FINDINGS: Lung bases show complete atelectasis of the medial basilar segment left lower lobe and subsegmental atelectasis throughout the remaining lower lobes and lingula. There are no effusions. The visualized heart is mildly enlarged with calcific plaque noted in the coronary arteries. Small hiatal hernia again noted. Images through the abdomen again show 13 mm simple cyst in the left hepatic lobe which is stable. Gallbladder is surgically absent. Intrahepatic and common bile ducts are normal CBD is 5 mm. Both kidneys, adrenal glands, spleen, pancreas and aorta are normal in size configuration and attenuation without focal lesion. The appendix is surgically absent. Stomach, small and large bowel are also normal. Pelvic images show hysterectomy/ oophorectomy changes. Davies catheter is in satisfactory position within the urinary bladder. There is a small /moderate amount of peritoneal hemorrhage admixed with free fluid scattered throughout the abdomen and pelvis. The laparoscopic incisions at midline and left lower quadrant appear unremarkable. There is no free air. IMPRESSION: [id number] hemoperitoneum admixed with free fluid which is likely surgical irrigant. Source of bleeding is not evident. (Inability to give IV contrast precludes ability to do CT angiography which could potentially determine the source of hemorrhage). Consider short-term (2 to 3 hours) follow-up noncontrast abdomen pelvic CT to detect any increase in hemoperitoneum which would indicate continued active hemorrhage. Interpreted and Authenticated by: Karsten Eng 03/07/19
[2019-03-07] MEDS ORDERED: ACETAMINOPHEN 1,000 MG/100 ML BOTTLE IV PRN (19:30)
[2019-03-07] MEDS ORDERED: HETASTARCH 6% 500 ML BAG IV ONE (19:45)
[2019-03-07] MEDS ORDERED: MIDAZOLAM 5 MG/5 ML VIAL IV ONE (19:45)
[2019-03-07] MEDS ORDERED: TRANEXAMIC ACID 1,000 MG/10 ML VIAL IV ONE (19:45)
[2019-03-07] MEDS ORDERED: METHOCARBAMOL 1,000 MG/10 ML VIAL IV PRN ×2 (20:39→21:35)
--- NOTE | 2019-03-07 20:48 | Brief Operative Note ---
Date of procedure: 03/07/19 Pre-op diagnosis: POSTOPERATIVE HEMORRHAGE Post-op diagnosis: other (POSTOPERATIVE HEMORRHAGE) Procedure: DIAGNOSTIC LAPAROSCOPY WITH EVACUATION OF CLOT AND CONTROL OF HEMORRHAGE FROM MESOAPPENDIX Grafts/Implants: No (ÁNGELA X1) Anesthesia: GETA Findings: LARGE VOLUME OF BLEEDING WITH MAJOR CLOT AT BASE OF CECUM AND ALONG MESOAPPENDIX STAPLE LINE Complications: none Surgeon: Natalee Mckeon Specimens Removed/Pathology: none sent Condition: stable Disposition: PACU
[2019-03-07] MEDS ORDERED: 0.9 % SODIUM CHLORIDE 10 ML SYRINGE IV SCH (22:00)
[2019-03-07 22:01] LABS: Basophils # (Auto) 0.1 K/mcL (0.0-0.3); Basophils % (Auto) 0.6 % (0.0-2.0); Eosinophils # (Auto) 0 K/mcL (0.0-0.7); Eosinophils % (Auto) 0 % (0.0-7.0); Granulocytes % (Auto) 86.4 % (38.0-78.0); Hematocrit 27.4 % (36.0-48.0); Hemoglobin 9.1 g/dL (12.0-15.0); Lymphocytes # (Auto) 1.1 K/mcL (1.5-4.8); Lymphocytes % (Auto) 8.8 % (15.5-49.0); Mean Cell Volume 89.8 fL (80.0-100.0); Mean Corpuscular HGB Conc 33.2 g/dL (31.0-36.0); Mean Platelet Volume 9.1 fL (7.4-10.4); Monocytes # (Auto) 0.6 K/mcL (0.1-0.9); Monocytes % (Auto) 4.2 % (1.0-12.0); Platelet Count 174 K/mcL (140-440); RBC 3.05 M/mcL (4.00-5.20); Red Cell Distribution Width 14.3 % (11.5-14.5); WBC 13.1 K/mcL (4.5-11.0)
[2019-03-07] MEDS ORDERED: MEPERIDINE 25 MG/ML SYRINGE IV ONE (22:06)
[2019-03-07] MEDS ORDERED: MEPERIDINE 50 MG/ML INJECTION ONE (22:10)
[2019-03-07] MEDS ORDERED: LEVALBUTEROL 1.25 MG/3 ML AMPUL.NEB NEB PRN (22:36)
[2019-03-07] MEDS ORDERED: LEVALBUTEROL 1.25 MG/3 ML AMPUL.NEB ONE (22:37)
[2019-03-07] MEDS: 0.9 % SODIUM CHLORIDE 250 ML IV SCH (23:40)
[2019-03-08] MEDS: PIPERACILLIN SODIUM/TAZOBACTAM 3.375 GM in DEXTROSE 5% IN WATER 50 ML IV SCH ×5 (00:39→23:51)
[2019-03-08] MEDS: 0.9 % SODIUM CHLORIDE 1,000 ML IV SCH ×3 (04:14→17:10)
[2019-03-08 05:52] LABS: Basophils # (Auto) 0 K/mcL (0.0-0.3); Basophils % (Auto) 0.2 % (0.0-2.0); Eosinophils # (Auto) 0 K/mcL (0.0-0.7); Eosinophils % (Auto) 0 % (0.0-7.0); Granulocytes % (Auto) 81.9 % (38.0-78.0); Hematocrit 31.4 % (36.0-48.0); Hemoglobin 10.4 g/dL (12.0-15.0); Lymphocytes # (Auto) 1.2 K/mcL (1.5-4.8); Lymphocytes % (Auto) 11.7 % (15.5-49.0); Mean Cell Volume 87.6 fL (80.0-100.0); Mean Corpuscular HGB Conc 33.1 g/dL (31.0-36.0); Mean Platelet Volume 9.3 fL (7.4-10.4); Monocytes # (Auto) 0.7 K/mcL (0.1-0.9); Monocytes % (Auto) 6.2 % (1.0-12.0); Platelet Count 173 K/mcL (140-440); RBC 3.59 M/mcL (4.00-5.20); Red Cell Distribution Width 16.1 % (11.5-14.5); WBC 10.6 K/mcL (4.5-11.0)
[2019-03-08 06:16] LABS: Blood Urea Nitrogen 25 mg/dl (8-23); Calcium 7.5 mg/dl (8.6-10.4); Carbon Dioxide 23 mmol/L (22-30); Chloride 106 mmol/L (96-108); Glomerular Filtration Rate 36; Glucose 242 mg/dL (70-105)
[2019-03-08] MEDS: 0.9 % SODIUM CHLORIDE 10 ML SYRINGE IV SCH ×3 (06:25→21:07)
[2019-03-08] MEDS: INSULIN LISPRO 1 UNIT/0.01 ML UNIT SQ SCH ×5 (06:51→21:06)
--- NOTE | 2019-03-08 08:39 | Operative Note ---
DATE OF OPERATION: 03/07/2019 PREOPERATIVE DIAGNOSIS: Postoperative hemorrhage status post appendectomy. POSTOPERATIVE DIAGNOSIS: Postoperative hemorrhage status post appendectomy. PROCEDURE: Diagnostic laparoscopy with evacuation of clot and control of hemorrhage from the mesoappendix. SURGEON: Natalee Mckeon M.D. FINDINGS: Large volume of bleeding with major clot at the base of the cecum and along the mesoappendix staple line. DESCRIPTION OF PROCEDURE: Under general anesthesia, the patient's abdomen was prepped and draped in a sterile field. A time-out procedure was carried out as per protocol. The previously placed juan were removed. The suture in the fascia at the supraumbilical midline incision was removed. A 12 mm port was placed uneventfully. The abdomen was insufflated. The laparoscope was then placed. There was clot primarily in the right lower quadrant and over the omentum and a small amount of clot in the pelvis. The 12 mm port was placed in the left lower quadrant and a 5 mm port in the suprapubic midline. The patient was placed in Trendelenburg position and rotated to the left. The clot in the right lower quadrant was suctioned and irrigated until it was clear. The most prominent clot was adherent to the mesoappendix and the base of the cecum. This was irrigated and suctioned free. There was still oozing from the mesoappendix so this was clipped with five clips. The staple line of the base of the appendix was clipped with three clips. More irrigation was carried out. No other bleeding was noted. There was no bleeding in the area of the takedown of the omentum, nor was there any bleeding around the port sites. Other irrigation was carried out. Six pieces of large Surgicel were placed at the base of the cecum and over the mesoappendix. A flat Scott ÁNGELA drain was placed in the right gutter over the Surgicel. It was brought out through the suprapubic midline. Inspection was carried out once more and no further areas of bleeding were noted. The ports were removed. The supraumbilical fascia was closed with 0 Vicryl. The other incisions were closed with juan. The drain was secured with 2-0 nylon. The patient was stable throughout the procedure. She was given 1 gram of tranexamic acid during the procedure. She was awakened and transferred to a bed and taken to the post-anesthetic care unit in stable, satisfactory condition. LCS:love Job ID: [id number] Doc ID: [id number] Natalee Mckeon M.D.
[2019-03-08] MEDS: ACETAMINOPHEN 1,000 MG/100 ML BOTTLE IV PRN ×2 (10:51→19:46)
[2019-03-08] MEDS ORDERED: ALPRAZolam 0.5 MG TABLET PO PRN (11:21)
[2019-03-08] MEDS: ALPRAZolam 0.5 MG TABLET PO PRN (11:41)
[2019-03-08] MEDS: METOPROLOL TARTRATE 50 MG TABLET PO SCH ×2 (11:41→21:06)
[2019-03-08 11:55] LABS: Hemoglobin 10.8 g/dL (12.0-15.0)
--- NOTE | 2019-03-08 12:05 | General Surgery Progress Note ---
Subjective Patient reports: feels better, pain is less, tolerating a regular diet, flatus, no bowel movement, afebrile Narrative: Note initiated : 03/08/19 at 12:03 pm Service Date, if different from initiated Date: [] Patient: Modesta Butterfield 78 y/o F admitted on 03/07/19 for vomitng and abd. cramping. Chief Complaint: [Patient is doing well. She states that she does feel weak. Her abdominal pain is minimal. She has moderate amount of bloody drainage but her hemoglobin has increased from 10.4-10.8 over the last 4 hours. Vital signs are stable with an actual increase in systolic blood pressure. This is probably related to the fact that her Catapres metoprolol were withheld. Her white blood count is 10.6.] Objective Temp Pulse Resp BP Pulse Ox 99.8 F H 116 H 18 140/55 96 03/08/19 08:00 03/08/19 08:00 03/08/19 08:00 03/08/19 08:00 03/08/19 08:00 - Additional Data Intake & Output - Last 24 hours: Intake & Output 03/06/19 03/07/19 03/08/19 03/09/19 05:59 05:59 05:59 05:59 Intake Total 50 4700 410 Output Total 1425 70 Balance 50 3275 340 Weight 190 lb 195 lb - General physical appearance well developed, well nourished, no distress, moderate pain - Eyes PERRL, normal ocular movement - ENT normal pinna, normal nares, normal mucosa, no hearing loss, no congestion - Neck no masses, no bruits, trachea midline, no lymphadenopathy, no venous distension - Respiratory normal expansion, normal respiratory effort, clear to auscultation - Cardiovascular Cardiovascular exam: Present: normal rate and rhythm, +S1, +S2. Absent: tachycardia - Abdomen tender (mild tenderness around port sites; good active bowel sounds; bloody drainage via peritoneal drain) - Integumentary no rash, no growths, no abnormal pigmentation - Neurologic normal coordination, normal sensation - Musculoskeletal normal gait, normal posture - Psychiatric oriented to time, oriented to person, oriented to place, speech is normal, memory intact - Labs 03/08/19 09:00 03/08/19 05:03 Diabetes panel 03/08/19 Range/Units 05:03 Sodium 139 (133-145) mmol/L Potassium 4.2 (3.3-5.1) mmol/L Chloride 106 (96-108) mmol/L Carbon Dioxide 23 (22-30) mmol/L BUN 25 H (8-23) mg/dl Creatinine 1.4 H (0.6-1.1) mg/dl Glucose 242 H (70-105) mg/dL Calcium 7.5 L (8.6-10.4) mg/dl Calcium panel 03/08/19 Range/Units 05:03 Calcium 7.5 L (8.6-10.4) mg/dl Pituitary panel 03/08/19 Range/Units 05:03 Sodium 139 (133-145) mmol/L Potassium 4.2 (3.3-5.1) mmol/L Chloride 106 (96-108) mmol/L Carbon Dioxide 23 (22-30) mmol/L BUN 25 H (8-23) mg/dl Creatinine 1.4 H (0.6-1.1) mg/dl Glucose 242 H (70-105) mg/dL Calcium 7.5 L (8.6-10.4) mg/dl Adrenal panel 03/08/19 Range/Units 05:03 Sodium 139 (133-145) mmol/L Potassium 4.2 (3.3-5.1) mmol/L Chloride 106 (96-108) mmol/L Carbon Dioxide 23 (22-30) mmol/L BUN 25 H (8-23) mg/dl Creatinine 1.4 H (0.6-1.1) mg/dl Glucose 242 H (70-105) mg/dL Calcium 7.5 L (8.6-10.4) mg/dl Assessment and Plan (1) Acute appendicitis Status: Acute Assessment and plan: Clinically stable at this time Current Visit: Yes (2) Postprocedural hemorrhage Status: Acute Assessment and plan: Continue to monitor hemoglobin Current Visit: Yes (3) CKD (chronic kidney disease) stage 3, GFR 30-59 ml/min Status: Chronic Current Visit: No (4) Asthma Problem details: Mild, Intermitten Status: Chronic Current Visit: No - Time Spent With Patient Total time spent is greater than 50% in coordination of care (as documented) at patient's floor/unit and/or counseling patient:
[2019-03-08] MEDS: FUROSEMIDE 20 MG/2 ML VIAL IV SCH ×2 (13:31→17:01)
--- NOTE | 2019-03-08 14:04 | Surgical Pathology Report ---
HISTOLOGY SPECIMEN MICROSCOPIC DIAGNOSIS APPENDIX, APPENDECTOMY: -- ACUTE APPENDICITIS WITH SEROSITIS. (EBD:princess) PROCEDURAL IMPRESSION Acute appendicitis. GROSS DESCRIPTION Received in formalin designated appendix, is a purple-cordova appendix with attached hernandez fat that measures 8.6 cm in length and up to 1.1 cm in diameter. The margin is stapled. This is inked black. There is cordova-hernandez exudate on the surface. Sectioning reveals viscous red fluid and hernandez fecal material. Grossly there are no areas of perforation identified. [employer] sections submitted in two cassettes. (SCB:sln) Electronically Signed by: Kaley Bennett M.D.
[2019-03-08 14:53] LABS: Hematocrit 32.5 % (36.0-48.0); Hemoglobin 10.7 g/dL (12.0-15.0)
[2019-03-08] MEDS: 0.9 % SODIUM CHLORIDE 250 ML IV SCH (14:59)
[2019-03-08 18:34] LABS: Hematocrit 33.6 % (36.0-48.0); Hemoglobin 11.2 g/dL (12.0-15.0)
[2019-03-08] MEDS ORDERED: METOPROLOL TARTRATE 50 MG TABLET PO SCH (21:00)
[2019-03-08] MEDS: cloNIDine HCL 0.1 MG TABLET PO SCH (21:06)
[2019-03-09] MEDS: 0.9 % SODIUM CHLORIDE 250 ML IV SCH ×2 (00:44→14:35)
[2019-03-09] MEDS: 0.9 % SODIUM CHLORIDE 1,000 ML IV SCH ×2 (02:27→14:34)
[2019-03-09] MEDS: PIPERACILLIN SODIUM/TAZOBACTAM 3.375 GM in DEXTROSE 5% IN WATER 50 ML IV SCH ×3 (05:46→17:34)
[2019-03-09] MEDS: 0.9 % SODIUM CHLORIDE 10 ML SYRINGE IV SCH ×3 (05:46→20:51)
[2019-03-09 06:29] LABS: Basophils # (Auto) 0.1 K/mcL (0.0-0.3); Basophils % (Auto) 0.5 % (0.0-2.0); Eosinophils # (Auto) 0.1 K/mcL (0.0-0.7); Eosinophils % (Auto) 0.8 % (0.0-7.0); Granulocytes % (Auto) 77.9 % (38.0-78.0); Hematocrit 33.4 % (36.0-48.0); Lymphocytes # (Auto) 1.6 K/mcL (1.5-4.8); Lymphocytes % (Auto) 15.1 % (15.5-49.0); Mean Cell Volume 88.1 fL (80.0-100.0); Mean Platelet Volume 9.7 fL (7.4-10.4); Monocytes # (Auto) 0.6 K/mcL (0.1-0.9); Monocytes % (Auto) 5.7 % (1.0-12.0); Platelet Count 188 K/mcL (140-440); RBC 3.79 M/mcL (4.00-5.20); Red Cell Distribution Width 15.8 % (11.5-14.5); WBC 10.7 K/mcL (4.5-11.0)
[2019-03-09] MEDS: ACETAMINOPHEN 1,000 MG/100 ML BOTTLE IV PRN (07:20)
[2019-03-09] MEDS: FUROSEMIDE 20 MG/2 ML VIAL IV SCH (07:35)
[2019-03-09] MEDS: INSULIN LISPRO 1 UNIT/0.01 ML UNIT SQ SCH ×4 (07:44→20:50)
[2019-03-09] MEDS: cloNIDine HCL 0.1 MG TABLET PO SCH ×2 (09:10→20:49)
[2019-03-09] MEDS: METOPROLOL TARTRATE 50 MG TABLET PO SCH ×2 (09:11→20:50)
[2019-03-09 11:05] LABS: Hematocrit 34.2 % (36.0-48.0); Hemoglobin 11.3 g/dL (12.0-15.0)
--- NOTE | 2019-03-09 14:01 | General Surgery Progress Note ---
Subjective Patient reports: feels better, pain is less, tolerating a regular diet, flatus, bowel movement, afebrile Narrative: Note initiated : 03/09/19 at 1:59 pm Service Date, if different from initiated Date: [] Patient: Modesta Butterfield 78 y/o F admitted on 03/07/19 for vomitng and abd. cramping. Chief Complaint: [patient continues to improve. Vital signs stable. She has moderate amount of bloody output but her hemoglobin has increased from 10.7- 11.3. She has less discomfort.] Objective Temp Pulse Resp BP Pulse Ox 96.8 F L 64 20 122/75 97 03/09/19 12:00 03/09/19 10:07 03/09/19 12:00 03/09/19 12:00 03/09/19 12:00 - Additional Data Intake & Output - Last 24 hours: Intake & Output 03/07/19 03/08/19 03/09/19 03/10/19 05:59 05:59 05:59 05:59 Intake Total 50 4700 4150 990 Output Total 1425 5810 1565 Balance 50 3275 -1660 -575 Weight 190 lb 195 lb 200 lb - General physical appearance well developed, well nourished, no distress - Eyes PERRL, normal ocular movement - ENT normal pinna, normal nares, normal mucosa, no hearing loss, no congestion - Neck no masses, no bruits, trachea midline, no lymphadenopathy, no venous distension - Respiratory normal expansion, normal respiratory effort, clear to auscultation - Cardiovascular Cardiovascular exam: Present: normal rate and rhythm, RRR, +S1, +S2. Absent: JVD, tachycardia - Abdomen tender (mild tenderness in periportal sites; peritoneal drain with bloody fluid) - Integumentary no rash, no growths, no abnormal pigmentation - Neurologic normal coordination, normal sensation - Musculoskeletal normal gait, normal posture - Psychiatric oriented to time, oriented to person, oriented to place, speech is normal, memory intact - Labs 03/09/19 10:34 03/08/19 05:03 Assessment and Plan (1) Acute appendicitis Status: Acute Assessment and plan: Clinically stable at this time Current Visit: Yes (2) Postprocedural hemorrhage Status: Acute Assessment and plan: Continue to monitor hemoglobin Current Visit: Yes (3) CKD (chronic kidney disease) stage 3, GFR 30-59 ml/min Status: Chronic Current Visit: No (4) Asthma Problem details: Mild, Intermitten Status: Chronic Current Visit: No - Time Spent With Patient Total time spent is greater than 50% in coordination of care (as documented) at patient's floor/unit and/or counseling patient:
[2019-03-10] MEDS: PIPERACILLIN SODIUM/TAZOBACTAM 3.375 GM in DEXTROSE 5% IN WATER 50 ML IV SCH ×5 (00:25→23:35)
[2019-03-10] MEDS: 0.9 % SODIUM CHLORIDE 1,000 ML IV SCH ×3 (01:14→21:31)
[2019-03-10] MEDS: 0.9 % SODIUM CHLORIDE 10 ML SYRINGE IV SCH ×3 (06:01→21:33)
[2019-03-10 06:18] LABS: Basophils # (Auto) 0 K/mcL (0.0-0.3); Basophils % (Auto) 0.4 % (0.0-2.0); Eosinophils # (Auto) 0.4 K/mcL (0.0-0.7); Eosinophils % (Auto) 4.7 % (0.0-7.0); Granulocytes % (Auto) 59.1 % (38.0-78.0); Hematocrit 31.4 % (36.0-48.0); Hemoglobin 10.3 g/dL (12.0-15.0); Lymphocytes # (Auto) 2.6 K/mcL (1.5-4.8); Lymphocytes % (Auto) 29.8 % (15.5-49.0); Mean Cell Volume 88.3 fL (80.0-100.0); Mean Corpuscular HGB Conc 32.9 g/dL (31.0-36.0); Mean Platelet Volume 9.8 fL (7.4-10.4); Monocytes # (Auto) 0.5 K/mcL (0.1-0.9); Platelet Count 205 K/mcL (140-440); RBC 3.55 M/mcL (4.00-5.20); Red Cell Distribution Width 15.6 % (11.5-14.5); WBC 8.8 K/mcL (4.5-11.0)
[2019-03-10 06:49] LABS: ALT/SGPT 17 U/l (0-40); AST/SGOT 24 U/l (0-37); Albumin 2.8 gm/dL (3.2-5.2); Albumin/Globulin Ratio 1.2 (1.0-2.3); Alkaline Phosphatase 29 U/L (39-117); Bilirubin,Direct < 0.2 mg/dL (0.0-0.3); Bilirubin,Total 0.4 mg/dL (0.0-1.0); Blood Urea Nitrogen 23 mg/dl (8-23); Calcium 8.1 mg/dl (8.6-10.4); Carbon Dioxide 26 mmol/L (22-30); Chloride 105 mmol/L (96-108); Globulin 2.3 gm/dL (2.2-3.7); Glomerular Filtration Rate 54; Glucose 117 mg/dL (70-105); Lactate Dehydrogenase 187 U/L (94-250); Phosphorous 1.4 mg/dL (2.7-4.5); Triglycerides 178 mg/dl (<150); Uric Acid 3.3 mg/dL (2.5-8.0)
[2019-03-10] MEDS: INSULIN LISPRO 1 UNIT/0.01 ML UNIT SQ SCH ×4 (07:30→21:32)
[2019-03-10] MEDS ORDERED: POTASSIUM PHOSPHATE 40 MEQ in DEXTROSE 5% IN WATER 500 ML IV ONE ×2 (07:35→17:00)
[2019-03-10] MEDS: cloNIDine HCL 0.1 MG TABLET PO SCH ×2 (09:27→21:33)
[2019-03-10] MEDS: METOPROLOL TARTRATE 50 MG TABLET PO SCH ×2 (09:27→21:33)
[2019-03-10] MEDS: ACETAMINOPHEN 1,000 MG/100 ML BOTTLE IV PRN (09:28)
--- NOTE | 2019-03-10 12:49 | General Surgery Progress Note ---
Subjective Patient reports: feels better, pain is less, tolerating a regular diet, flatus, bowel movement, afebrile Narrative: Note initiated : 03/10/19 at 12:47 pm Service Date, if different from initiated Date: [] Patient: Modesta Butterfield 78 y/o F admitted on 03/07/19 for vomitng and abd. cramping. Chief Complaint: [patient states that she feels better. Her pain is significantly less she does not have nausea. She has had multiple bowel movements. White blood count 8.8, hemoglobin 10.3, hematocrit 31.4, potassium 3.2, phosphorus 1.4. The ÁNGELA drainage is much better with the fluid in the tube then primarily serous.] Objective Temp Pulse Resp BP Pulse Ox 97.2 F 66 18 138/84 96 03/10/19 11:34 03/10/19 11:34 03/10/19 11:34 03/10/19 11:34 03/10/19 11:34 - Additional Data Intake & Output - Last 24 hours: Intake & Output 03/08/19 03/09/19 03/10/19 03/11/19 05:59 05:59 05:59 05:59 Intake Total 4700 4150 4005 290 Output Total 1425 5810 2760 875 Balance 3275 -1660 1245 -585 Weight 195 lb 200 lb 200 lb - General physical appearance well developed, well nourished, no distress - Eyes PERRL, normal ocular movement - ENT normal pinna, normal nares, normal mucosa, no hearing loss, no congestion - Neck no masses, no bruits, trachea midline, no lymphadenopathy, no venous distension - Respiratory normal expansion, normal respiratory effort, clear to auscultation - Cardiovascular Cardiovascular exam: Present: normal rate and rhythm, RRR, +S1, +S2. Absent: JVD, tachycardia - Abdomen tender (mild tenderness and port sites otherwise benign abdomen) - Integumentary no rash, no growths, no abnormal pigmentation - Neurologic normal coordination, normal sensation - Musculoskeletal normal gait, normal posture - Psychiatric oriented to time, oriented to person, oriented to place, speech is normal, memory intact - Labs 03/10/19 04:30 03/10/19 04:30 Diabetes panel 03/10/19 Range/Units 04:30 Sodium 140 (133-145) mmol/L Potassium 3.2 L (3.3-5.1) mmol/L Chloride 105 (96-108) mmol/L Carbon Dioxide 26 (22-30) mmol/L BUN 23 (8-23) mg/dl Creatinine 1.0 (0.6-1.1) mg/dl Glucose 117 H (70-105) mg/dL Calcium 8.1 L (8.6-10.4) mg/dl AST 24 (0-37) U/l ALT 17 (0-40) U/l Alkaline Phosphatase 29 L (39-117) U/L Total Protein 5.1 L (5.9-8.4) gm/dL Albumin 2.8 L (3.2-5.2) gm/dL Triglycerides 178 H (<150) mg/dl Calcium panel 03/10/19 Range/Units 04:30 Calcium 8.1 L (8.6-10.4) mg/dl Phosphorus 1.4 L (2.7-4.5) mg/dL Albumin 2.8 L (3.2-5.2) gm/dL Pituitary panel 03/10/19 Range/Units 04:30 Sodium 140 (133-145) mmol/L Potassium 3.2 L (3.3-5.1) mmol/L Chloride 105 (96-108) mmol/L Carbon Dioxide 26 (22-30) mmol/L BUN 23 (8-23) mg/dl Creatinine 1.0 (0.6-1.1) mg/dl Glucose 117 H (70-105) mg/dL Calcium 8.1 L (8.6-10.4) mg/dl Adrenal panel 03/10/19 Range/Units 04:30 Sodium 140 (133-145) mmol/L Potassium 3.2 L (3.3-5.1) mmol/L Chloride 105 (96-108) mmol/L Carbon Dioxide 26 (22-30) mmol/L BUN 23 (8-23) mg/dl Creatinine 1.0 (0.6-1.1) mg/dl Glucose 117 H (70-105) mg/dL Calcium 8.1 L (8.6-10.4) mg/dl Total Bilirubin 0.4 (0.0-1.0) mg/dL AST 24 (0-37) U/l ALT 17 (0-40) U/l Alkaline Phosphatase 29 L (39-117) U/L Total Protein 5.1 L (5.9-8.4) gm/dL Albumin 2.8 L (3.2-5.2) gm/dL Assessment and Plan (1) Acute appendicitis Status: Acute Assessment and plan: Clinically stable at this time No evidence of acute infection Current Visit: Yes (2) Postprocedural hemorrhage Status: Acute Assessment and plan: Continue to monitor hemoglobin No evidence of active bleeding Current Visit: Yes (3) CKD (chronic kidney disease) stage 3, GFR 30-59 ml/min Status: Chronic Current Visit: No (4) Asthma Problem details: Mild, Intermitten Status: Chronic Current Visit: No - Time Spent With Patient Total time spent is greater than 50% in coordination of care (as documented) at patient's floor/unit and/or counseling patient:
[2019-03-10] MEDS: ALPRAZolam 0.5 MG TABLET PO PRN (21:50)
[2019-03-11 03:01] LABS: Basophils # (Auto) 0 K/mcL (0.0-0.3); Basophils % (Auto) 0.6 % (0.0-2.0); Eosinophils # (Auto) 0.4 K/mcL (0.0-0.7); Eosinophils % (Auto) 5.6 % (0.0-7.0); Granulocytes % (Auto) 60.9 % (38.0-78.0); Hematocrit 31.8 % (36.0-48.0); Hemoglobin 10.5 g/dL (12.0-15.0); Lymphocytes # (Auto) 1.8 K/mcL (1.5-4.8); Lymphocytes % (Auto) 26.3 % (15.5-49.0); Mean Cell Volume 88.7 fL (80.0-100.0); Mean Corpuscular HGB Conc 33.1 g/dL (31.0-36.0); Mean Platelet Volume 9.7 fL (7.4-10.4); Monocytes # (Auto) 0.5 K/mcL (0.1-0.9); Monocytes % (Auto) 6.6 % (1.0-12.0); Platelet Count 217 K/mcL (140-440); RBC 3.59 M/mcL (4.00-5.20); Red Cell Distribution Width 15.4 % (11.5-14.5)
[2019-03-11] MEDS: PIPERACILLIN SODIUM/TAZOBACTAM 3.375 GM in DEXTROSE 5% IN WATER 50 ML IV SCH ×2 (05:38→12:51)
[2019-03-11] MEDS: 0.9 % SODIUM CHLORIDE 10 ML SYRINGE IV SCH (05:38)
[2019-03-11 06:18] LABS: Basophils # (Auto) 0 K/mcL (0.0-0.3); Basophils % (Auto) 0.4 % (0.0-2.0); Eosinophils # (Auto) 0.5 K/mcL (0.0-0.7); Eosinophils % (Auto) 7.1 % (0.0-7.0); Granulocytes % (Auto) 52.1 % (38.0-78.0); Hematocrit 31.5 % (36.0-48.0); Hemoglobin 10.3 g/dL (12.0-15.0); Lymphocytes # (Auto) 2.1 K/mcL (1.5-4.8); Lymphocytes % (Auto) 32.7 % (15.5-49.0); Mean Cell Volume 88.3 fL (80.0-100.0); Mean Corpuscular HGB Conc 32.8 g/dL (31.0-36.0); Mean Platelet Volume 9.1 fL (7.4-10.4); Monocytes # (Auto) 0.5 K/mcL (0.1-0.9); Monocytes % (Auto) 7.7 % (1.0-12.0); Platelet Count 225 K/mcL (140-440); RBC 3.57 M/mcL (4.00-5.20); Red Cell Distribution Width 15.2 % (11.5-14.5); WBC 6.4 K/mcL (4.5-11.0)
[2019-03-11 06:34] LABS: ALT/SGPT 16 U/l (0-40); AST/SGOT 22 U/l (0-37); Albumin 2.7 gm/dL (3.2-5.2); Albumin/Globulin Ratio 1.1 (1.0-2.3); Alkaline Phosphatase 31 U/L (39-117); Bilirubin,Direct < 0.2 mg/dL (0.0-0.3); Bilirubin,Total 0.4 mg/dL (0.0-1.0); Blood Urea Nitrogen 18 mg/dl (8-23); Calcium 8.6 mg/dl (8.6-10.4); Carbon Dioxide 26 mmol/L (22-30); Chloride 106 mmol/L (96-108); Globulin 2.5 gm/dL (2.2-3.7); Glomerular Filtration Rate 71; Glucose 147 mg/dL (70-105); Lactate Dehydrogenase 176 U/L (94-250); Phosphorous 3.1 mg/dL (2.7-4.5); Triglycerides 195 mg/dl (<150); Uric Acid 2.8 mg/dL (2.5-8.0)
[2019-03-11] MEDS: INSULIN LISPRO 1 UNIT/0.01 ML UNIT SQ SCH ×2 (07:40→12:52)
[2019-03-11] MEDS: METOPROLOL TARTRATE 50 MG TABLET PO SCH (07:41)
[2019-03-11] MEDS: cloNIDine HCL 0.1 MG TABLET PO SCH (07:41)
--- NOTE | 2019-03-11 13:40 | Discharge Summary ---
Providers - Providers Patient information: Note initiated : 03/11/19 at 1:35 pm Service Date, if different from initiated Date: [] Patient: Modesta Butterfield 78 y/o F admitted on 03/07/19 for vomitng and abd. cramping. Chief Complaint: [] Date of admission: 03/07/19 Discharge date: 03/11/19 Attending physician: Natalee Mckeon Hospitalization Hospital course: 78-year-old female who was admitted on 07 March with signs and symptoms of acute appendicitis. CT of abdomen and pelvis confirmed acute appendiceal inflammation with 3 appendicolith. She underwent a laparoscopic appendectomy with findings of severe separative appendicitis. She had appendectomy using the Endo HUGH stapler system. There was no bleeding at all at the time the peritoneum was closed. About 2 hours after reaching the floor she became weak and diaphoretic. Her blood pressure dropped to 78. Hemoglobin had decreased from 13-10. Follow-up CT showed major bleeding in the pelvis. A diagnostic laparoscopy was done with findings of pulsatile bleeding from the staple line on the mesial appendix. This was controlled with electrocautery and by using multiple hemoclips. Copious irrigation of the peritoneal cavity was carried out to make sure there was no other sources of bleeding. Drain was placed at the base of the cecum in the operative field. Postoperatively the hemoglobin dropped to 9 so she was transfused 2 units of blood. She has been stable in the postoperative period and her hemoglobin has fluctuated between 10.3 and 11.3. Vital signs have been stable. Her drainage fluid is decreasing daily and is still slightly bloody. There is no evidence of active hemorrhage. Patient is felt to be stable enough for discharge. 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 Pulse procedure hemorrhage with anemia Reason for admission: acute appendicitis Procedures: Laparoscopic appendectomy Diagnostic laparoscopy with control of hemorrhage from mesoappendix staple line Pertinent studies/significant findings: CT of abdomen and pelvis with contrast 2 Complications: Postprocedure hemorrhage Exam Temp Pulse Resp BP Pulse Ox 98.5 F 65 20 154/77 97 03/11/19 12:00 03/11/19 03:39 03/11/19 12:00 03/11/19 12:00 03/11/19 12:00 - General physical appearance well developed, well nourished, no distress - Eyes PERRL, normal ocular movement - ENT normal pinna, normal nares, normal mucosa, no hearing loss, no congestion - Head Head exam IM: Present: atraumatic, normocephalic - Neck no masses, no bruits, trachea midline, no lymphadenopathy, no venous distension - Cardiovascular Cardiovascular exam IM: Present: normal rate and rhythm - Respiratory normal expansion, normal respiratory effort, clear to auscultation - Abdomen Abdomen: Present: soft, tender (minimal tenderness and port sites; good active bowel sounds; serosanguineous drainage from ÁNGELA drain), bowel sounds Hernia: Present: none - Genitourinary Present: normal external genitalia - Integumentary Present: no rash, no growths, no abnormal pigmentation - Neurologic Present: normal coordination, normal sensation - Musculoskeletal Present: normal gait, normal posture - Psychiatric Present: oriented to time, oriented to person, oriented to place, speech is normal, memory intact Discharge Plan - Patient/Caregiver Discharge Instructions Activity: increase activity as tolerated Diet: Regular Diet Additional Instructions: empty [place] drain as needed and record the volume for further reference Follow-up in the office on MARCH 27. Call the office on Wednesday to schedule an appointment - Follow up Plan Follow up with: Natalee Mckeon MD [Physician] - 03/14/19 10:45 am Xavier Basurto MD [Primary Care Provider] - Disposition: Home, Self-Care Prognosis: Good Rehab Potential: Good I certify that the patient requires SNF services.: No Overall status at discharge: patient is progressing back to baseline Pending Studies Resuscitation Status Full Code Diet Consistent Carbohydrate Diet Start WedMar 08 731 Alprazolam (Xanax) 0.5 mg PO Q8HP PRN PRN Reason: Anxiety Last Admin: 03/10/19 21:50 Dose: 0.5 mg Documented by: Admin: 03/08/19 11:41 Dose: 0.5 mg Documented by: [email or web address] Clonidine HCl (Catapres) 0.1 mg PO BID SATISH Last Admin: 03/11/19 07:41 Dose: 0.1 mg Documented by: [email or web address] Admin: 03/10/19 21:33 Dose: 0.1 mg Documented by: Admin: 03/10/19 09:27 Dose: 0.1 mg Documented by: [email or web address] Admin: 03/09/19 20:49 Dose: 0.1 mg Documented by: Admin: 03/09/19 09:10 Dose: 0.1 mg Documented by: Admin: 03/08/19 21:06 Dose: 0.1 mg Documented by: [email or web address] Diagnostic Test (Pha) (Accu-Chek) 1 each FS ACHS SATISH; Protocol Last Admin: 03/11/19 12:52 Dose: 1 each Documented by: Admin: 03/11/19 07:30 Dose: 1 each Documented by: [email or web address] Admin: 03/10/19 21:31 Dose: 1 each Documented by: Admin: 03/10/19 17:13 Dose: 1 each Documented by: Admin: 03/10/19 11:28 Dose: 1 each Documented by: Admin: 03/10/19 07:28 Dose: 1 each Documented by: Admin: 03/09/19 20:50 Dose: 1 each Documented by: Admin: 03/09/19 16:52 Dose: 1 each Documented by: Admin: 03/09/19 12:10 Dose: 1 each Documented by: Admin: 03/09/19 07:39 Dose: 1 each Documented by: Admin: 03/08/19 21:06 Dose: 1 each Documented by: Admin: 03/08/19 16:59 Dose: 1 each Documented by: Admin: 03/08/19 11:43 Dose: 1 each Documented by: Admin: 03/08/19 07:23 Dose: 1 each Documented by: [email or web address] Hydromorphone HCl (Dilaudid) 1 mg IV Q2HP PRN PRN Reason: PAIN LEVEL > 6 Last Admin: 03/08/19 01:47 Dose: 1 mg Documented by: [email or web address] Acetaminophen (Ofirmev) 1,000 mg in 100 mls @ 200 mls/hr IV Q6HP PRN PRN Reason: Pain Last Infusion: 03/10/19 10:00 Dose: 0 mls/hr Documented by: Admin: 03/10/19 09:28 Dose: 200 mls/hr Documented by: Infusion: 03/09/19 07:50 Dose: 0 mls/hr Documented by: Admin: 03/09/19 07:20 Dose: 200 mls/hr Documented by: [email or web address] Infusion: 03/08/19 20:16 Dose: 200 mls/hr Documented by: [email or web address] Admin: 03/08/19 19:46 Dose: 200 mls/hr Documented by: Infusion: 03/08/19 11:21 Dose: 200 mls/hr Documented by: Admin: 03/08/19 10:51 Dose: 200 mls/hr Documented by: LEMUEL Piperacillin Sod/Tazobactam (Sod 3.375 gm/ Dextrose) 50 mls @ 100 mls/hr IV Q6H SATISH; Protocol Last Admin: 03/11/19 12:51 Dose: 100 mls/hr Documented by: Infusion: 03/11/19 06:08 Dose: 100 mls/hr Documented by: Admin: 03/11/19 05:38 Dose: 100 mls/hr Documented by: Infusion: 03/11/19 00:05 Dose: 100 mls/hr Documented by: Admin: 03/10/19 23:35 Dose: 100 mls/hr Documented by: Infusion: 03/10/19 17:45 Dose: 0 mls/hr Documented by: Admin: 03/10/19 17:14 Dose: 100 mls/hr Documented by: [email or web address] Infusion: 03/10/19 11:47 Dose: 0 mls/hr Documented by: [email or web address] Admin: 03/10/19 11:17 Dose: 100 mls/hr Documented by: [email or web address] Infusion: 03/10/19 06:31 Dose: 100 mls/hr Documented by: [email or web address] Admin: 03/10/19 06:01 Dose: 100 mls/hr Documented by: Infusion: 03/10/19 00:55 Dose: 100 mls/hr Documented by: Admin: 03/10/19 00:25 Dose: 100 mls/hr Documented by: Infusion: 03/09/19 18:04 Dose: 100 mls/hr Documented by: Admin: 03/09/19 17:34 Dose: 100 mls/hr Documented by: [email or web address] Infusion: 03/09/19 12:40 Dose: 0 mls/hr Documented by: [email or web address] Admin: 03/09/19 12:09 Dose: 100 mls/hr Documented by: [email or web address] Infusion: 03/09/19 06:16 Dose: 100 mls/hr Documented by: [email or web address] Admin: 03/09/19 05:46 Dose: 100 mls/hr Documented by: Infusion: 03/09/19 00:21 Dose: 100 mls/hr Documented by: Admin: 03/08/19 23:51 Dose: 100 mls/hr Documented by: Infusion: 03/08/19 17:47 Dose: 100 mls/hr Documented by: Admin: 03/08/19 17:17 Dose: 100 mls/hr Documented by: [email or web address] Infusion: 03/08/19 12:25 Dose: 0 mls/hr Documented by: [email or web address] Admin: 03/08/19 11:54 Dose: 100 mls/hr Documented by: [email or web address] Infusion: 03/08/19 06:42 Dose: 0 mls/hr Documented by: [email or web address] Admin: 03/08/19 06:12 Dose: 100 mls/hr Documented by: [email or web address] Infusion: 03/08/19 01:09 Dose: 100 mls/hr Documented by: [email or web address] Admin: 03/08/19 00:39 Dose: 100 mls/hr Documented by: [email or web address] Sodium Chloride (Sodium Chloride 0.9%) 1,000 mls @ 100 mls/hr IV .Q10H SATISH Last Admin: 03/10/19 21:31 Dose: 100 mls/hr Documented by: Infusion: 03/10/19 11:14 Dose: 100 mls/hr Documented by: Admin: 03/10/19 09:35 Dose: Not Given Documented by: [email or web address] Admin: 03/10/19 01:14 Dose: 100 mls/hr Documented by: Infusion: 03/10/19 00:34 Dose: 100 mls/hr Documented by: Admin: 03/09/19 14:34 Dose: 100 mls/hr Documented by: [email or web address] Infusion: 03/09/19 12:27 Dose: 100 mls/hr Documented by: [email or web address] Admin: 03/09/19 02:27 Dose: 100 mls/hr Documented by: Infusion: 03/09/19 00:50 Dose: 100 mls/hr Documented by: Admin: 03/08/19 17:10 Dose: Not Given Documented by: Admin: 03/08/19 14:50 Dose: 100 mls/hr Documented by: Infusion: 03/08/19 14:49 Dose: 0 mls/hr Documented by: Admin: 03/08/19 04:14 Dose: 100 mls/hr Documented by: Admin: 03/07/19 23:20 Dose: Not Given Documented by: MELBA Insulin Human Lispro (Humalog) 0 unit SQ ACHS SATISH; Protocol Last Admin: 03/11/19 12:52 Dose: 8 units Documented by: Admin: 03/11/19 07:40 Dose: 4 units Documented by: [email or web address] Admin: 03/10/19 21:32 Dose: 8 units Documented by: Admin: 03/10/19 17:20 Dose: 6 units Documented by: Admin: 03/10/19 11:36 Dose: 6 units Documented by: Admin: 03/10/19 07:30 Dose: Not Given Documented by: Admin: 03/09/19 20:50 Dose: 6 units Documented by: Admin: 03/09/19 17:33 Dose: 8 units Documented by: [email or web address] Admin: 03/09/19 12:17 Dose: 6 units Documented by: [email or web address] Admin: 03/09/19 07:44 Dose: 4 units Documented by: [email or web address] Admin: 03/08/19 21:06 Dose: 6 units Documented by: Admin: 03/08/19 17:00 Dose: 4 units Documented by: Admin: 03/08/19 11:45 Dose: 6 units Documented by: Admin: 03/08/19 07:24 Dose: 6 units Documented by: [email or web address] Levalbuterol HCl (Xopenex) 1.25 mg NEB Q4HP PRN PRN Reason: Shortness Of Breath Last Admin: 03/08/19 06:25 Dose: 1.25 mg Documented by: MELBA Metoprolol Tartrate (Lopressor) 100 mg PO BID SATISH Last Admin: 03/11/19 07:41 Dose: 100 mg Documented by: [email or web address] Admin: 03/10/19 21:33 Dose: 100 mg Documented by: Admin: 03/10/19 09:27 Dose: 100 mg Documented by: Admin: 03/09/19 20:50 Dose: 100 mg Documented by: Admin: 03/09/19 09:11 Dose: 100 mg Documented by: [email or web address] Admin: 03/08/19 21:06 Dose: 100 mg Documented by: Admin: 03/08/19 11:41 Dose: 100 mg Documented by: [email or web address] Promethazine HCl (Phenergan) 12.5 mg IV Q6HP PRN PRN Reason: Nausea And Vomiting Last Admin: 03/08/19 00:02 Dose: 12.5 mg Documented by: MELBA Sodium Chloride (Saline Flush) 10 ml IV Q8 SATISH Last Admin: 03/11/19 05:38 Dose: Not Given Documented by: Admin: 03/10/19 21:33 Dose: Not Given Documented by: Admin: 03/10/19 13:25 Dose: Not Given Documented by: Admin: 03/10/19 06:01 Dose: Not Given Documented by: Admin: 03/09/19 20:51 Dose: Not Given Documented by: Admin: 03/09/19 13:49 Dose: Not Given Documented by: [email or web address] Admin: 03/09/19 05:46 Dose: Not Given Documented by: Admin: 03/08/19 21:07 Dose: 10 ml Documented by: Admin: 03/08/19 13:35 Dose: Not Given Documented by: Admin: 03/08/19 06:25 Dose: Not Given Documented by: Admin: 03/07/19 23:20 Dose: Not Given Documented by: MELBA Shift Summary 03/11/19 03:43 Shift Summary by Lauren Mays a/o x4, up to bathroom with sba assist, has had 2 soft dark brown stools, voiding well, urine pale yellow, lap site to abd with juan in place, wound edges approximated, no drainage to these sites, clear dressings to sites, has lower abd ángela drain x1, with thin bloody drainage,, afebrile, denies any c/o pain, am b/p of 167/69., blood sugar checks ac/hs, hs was 268, received 8 units of Humalog, and given hs snack, no c/o nausea this shift. given Xanax at bedtime as sleep aid. Initialized on 03/11/19 03:43 - END OF NOTE
== END 2019-03-11 16:30 | disposition home or self-care (01) | DRG 342 ==
LOC: ED 20:17 → MEDSUR 20:17
PROVIDERS: ADMIT Family Medicine Adult Medicine; ATTEND Family Medicine Adult Medicine